=== PATIENT | female | born 1955 | race Caucasian/White ===

== ENCOUNTER → 2016-12-09 | Outpatient (CLI) | payer BC ==
[~2016-12-09] MED LIST: ACTONEL150 MG PO; ANEXSIA 7.5/3251 TA1 PO; BUTALBITAL-APAP1 TA3 PO; CALCIUM + VITAM1 TAB PO; CELEBREX PO; EFFEXOR XR150 MG PO; ESTRADIOL1 MG PO; FISH OIL 1,2001 CAP PO; FLAXSEED OIL1000 M1 PO; HYDROCODON-ACE1 EAC7 PO; HYDROCODONE-APA1 T41 PO; HYDROCODONE-APA1 T56 PO; LEVOXYL112 MCG PO; LOVENOX40 MG/0.4 SUBQ; METROGEL60 GM TP; MIRALAX17 G1 PO; NIACIN1000 MG PO; RA GLUCOSAMINE PO; SIMVASTATIN40 MG PO; TRAMADOL HCL50 M2 PO; VAGIFEM25 MCG PV; VANCOMYCIN IV; VESICARE5 MG PO; VITAL-D RX TABL1 TAB PO; VITAMIN C500 M5 PO; VITAMIN E400 UNI1 PO; VITAMIN E400 UNI2 PO; ZOFRAN ODT4 MG PO
[2016-12-09 16:01] LABS: THYROID STIMULATING HORMONE 0.02 uIU/ml (0.34-5.60)
[2016-12-09 16:08] LABS: FREE THYROXIN (T4) 1.41 ng/dL (0.58-1.64)
== END | disposition home or self-care (01) ==
LOC: CLAB 14:29
PROVIDERS: Internal Medicine Endocrinology, Diabetes & Metabolism
DX: E03.8 Other specified hypothyroidism (principal)
CPT/HCPCS: 36415; 84439; 84443